=== PATIENT | female | born 1955 | race Caucasian/White ===

== ENCOUNTER → 2021-01-01 | Outpatient (CLI) | payer MEDICARE, OTHER ==
[~2021-01-01] MED LIST: ALLERGY RELIEF10 M1 PO; B COMPLEX1 EACH PO; CALTRATE 600MG600 MG PO; IBUPROFEN800 MG PO; PLAQUENIL200 MG PO
[2021-01-01 15:41] LABS: BUN/CREATININE RATIO 12 (0-10)
== END ==
LOC: LAB 14:29
PROVIDERS: Optometrist
DX: M31.5 Giant cell arteritis with polymyalgia rheumatica (principal)
CPT/HCPCS: 36415; 80053; 85652; 86140